=== PATIENT | female | born 1995 | race Caucasian/White ===

== ENCOUNTER → 2017-03-20 | Outpatient (CLI) | payer OTHER ==
[~2017-03-20] MED LIST: AMOXICILLIN500 M2 PO
== END | disposition home or self-care (01) ==
LOC: LAB 13:28
DX: N92.6 Irregular menstruation, unspecified (principal)

== ENCOUNTER → 2017-04-09 | Outpatient (CLI) | payer OTHER | END | disposition home or self-care (01) | LOC: LAB 13:41 | DX: N92.6 Irregular menstruation, unspecified (principal) ==

== ENCOUNTER 2018-09-30 09:53 | Emergency (ER) | payer OTHER ==
[~2018-09-30] VITALS: Ht 167.6 cm; Wt 127.0 kg
--- NOTE | ~2018-09-30 | EKG ---
[place], [place] ELECTROCARDIOGRAM REPORT NAME: ABDIRAHMAN KAHN UNIT #: [id number] ROOM: DOCTOR: BOO DRAFT REPORT BIRTHDATE: [birth year] [facility] Test Date: 2018-09-30 Test Time: 10:17:22 Pat Name: ABDIRAHMAN KAHN Department: Room: Gender: F Tobacco Grader: Brianna Parker : 1995 Requested By: LETICIA SOMERS Order Number: [id number] Reading MD: Vincent Rascon MD Measurements Intervals [place] Rate: 114 P: 28 MT: 155 QRS: 8 QRSD: 87 T: 34 QT: 313 QTc: 432 Interpretive Statements Sinus tachycardia Borderline ST depression, lateral leads Baseline wander in lead(s) II,III,aVF,V3 Electronically Signed On 10-02-2018 14:28:11 PST by Vincent Rascon MD CM:EKGRPT:ELECTROCARDIOGRAM REPORT [id number] LETICIA MALCOLM DRAFT REPORT LETICIA SOMERS DO
[2018-09-30 09:55] VITALS: BP 112/77
[2018-09-30 10:47] LABS: BILIRUBIN NEGATIVE (NEGATIVE); BLOOD 1+ (NEGATIVE); CLARITY CLOUDY (CLEAR); COLOR YELLOW (YELLOW); GLUCOSE NEGATIVE (NEGATIVE); KETONE TRACE (NEGATIVE); LEUKO ESTERASE TRACE (NEGATIVE); NITRITE NEGATIVE (NEGATIVE); UROBILINOGEN 0.2 E.U./dl (0.2-1.0)
[2018-09-30 10:57] LABS: BACTERIA TRACE; EPITHELIAL CELLS 21-30; MUCOUS 2+
[2018-09-30] MEDS ORDERED: PREDNISONE20 M1 PO (12:40)
[2018-09-30] MEDS ORDERED: AUGMENTIN 875875 MG PO (12:40)
== END 2018-09-30 13:29 | disposition home or self-care (01) ==
LOC: ED 09:53
PROVIDERS: Physician Assistant
DX: J02.9 Acute pharyngitis, unspecified (principal); Z90.49 Acquired absence of other specified parts of digestive tract

== ENCOUNTER → 2019-10-19 | Outpatient (CLI) | payer OTHER ==
[~2019-10-19] MED LIST changes: +AUGMENTIN 875875 MG PO; +AVPAK AZITHROM250 MG PO; +FLONASE ALLERG9.9 ML NAS; +MUCINEX1200 M1 PO; +PREDNISONE20 M1 PO
== END | disposition home or self-care (01) ==
LOC: US 10:44
DX: N93.9 Abnormal uterine and vaginal bleeding, unspecified (principal)

== ENCOUNTER 2019-12-07 18:26 | Emergency (ER) | payer OTHER ==
[~2019-12-07] VITALS: Ht 170.1 cm; Wt 127.0 kg
[2019-12-07 18:28] VITALS: BP 120/54
[2019-12-07] MEDS ORDERED: CEFADROXIL500 M1 PO (20:39)
== END 2019-12-07 20:55 | disposition home or self-care (01) ==
LOC: ED 18:26
DX: S61.215A Laceration without foreign body of left ring finger without damage to nail, initial encounter (principal); Z88.8 Allergy status to other drugs, medicaments and biological substances; W26.0XXA Contact with knife, initial encounter; Y93.89 Activity, other specified; Y92.89 Other specified places as the place of occurrence of the external cause; Y99.8 Other external cause status

== ENCOUNTER → 2020-04-07 | Outpatient (CLI) | payer OTHER ==
[~2020-04-07] MED LIST changes: +CEFADROXIL500 M1 PO; +CYCLOBENZAPRINE10 MG PO; +Motrin,Rufen800 MG PO; +NORCO 5-325 TA1 EACH PO; +ZOFRAN4 MG PO
== END | disposition home or self-care (01) ==
LOC: LAB 00:01
DX: N93.9 Abnormal uterine and vaginal bleeding, unspecified (principal)

== ENCOUNTER → 2020-04-12 | Day surgery (SDC) | payer OTHER ==
[~2020-04-12] VITALS: Ht 167.6 cm; Wt 129.3 kg
[2020-04-12 06:57] VITALS: BP 112/67
[2020-04-12 09:27] VITALS: BP 106/61
[2020-04-12 09:57] VITALS: BP 122/76
[2020-04-12 10:12] VITALS: BP 116/71
[2020-04-12 10:27] VITALS: BP 109/69
[2020-04-12 10:42] VITALS: BP 115/70
== END | disposition home or self-care (01) ==
LOC: SDC 02-23 13:15
DX: N97.8 Female infertility of other origin (principal); N83.292 Other ovarian cyst, left side; N70.11 Chronic salpingitis; K21.9 Gastro-esophageal reflux disease without esophagitis; Z83.3 Family history of diabetes mellitus

== ENCOUNTER → 2020-11-05 | Outpatient (CLI) | payer SELFPAY | END | disposition home or self-care (01) | LOC: COVID19 09:41 | PROVIDERS: ATTEND Internal Medicine | DX: U07.1 COVID-19 (principal) ==

== ENCOUNTER → 2023-05-20 | Outpatient (CLI) | payer BC ==
[2023-05-20 12:43] LABS: ALKALINE PHOSPHATASE 45 U/L (46-116); BUN 10 mg/dl (9-23); CHLORIDE 104 mmol/L (98-107); CHOLESTEROL 136 mg/dL (<200); LDL CHOLESTEROL 74 mg/dL (9-159); POTASSIUM 4.2 mmol/L (3.4-5.1); SGPT/ALT 19 U/L (10-49); TOTAL PROTEIN 7.9 gm/dL (6.0-8.0); TRIGLYCERIDES 91 mg/dl (<150)
[2023-05-20 12:52] LABS: VITAMIN D, 25-HYDROXY 30.1 ng/mL (30-100)
== END | disposition home or self-care (01) ==
LOC: LAB 11:47
PROVIDERS: ATTEND Nurse Practitioner Primary Care
DX: R53.83 Other fatigue (principal); E53.8 Deficiency of other specified B group vitamins; E55.9 Vitamin D deficiency, unspecified; Z68.43 Body mass index [BMI] 50.0-59.9, adult

== ENCOUNTER → 2025-06-08 | Outpatient (CLI) | payer OTHER ==
[2025-06-08 12:27] LABS: BUN 11 mg/dl (9-23); SGPT/ALT 14 U/L (5-49)
[2025-06-08 12:30] LABS: VITAMIN D, 25-HYDROXY 53.4 ng/mL (30-100)
== END | disposition home or self-care (01) ==
LOC: LAB 11:25
PROVIDERS: ATTEND Nurse Practitioner Primary Care
DX: E55.9 Vitamin D deficiency, unspecified (principal); E53.8 Deficiency of other specified B group vitamins; E66.01 Morbid (severe) obesity due to excess calories